=== PATIENT | female | born 1970 | race Hispanic/Latino ===

== ENCOUNTER 2021-08-04 11:16 | Emergency (ER) | payer BC ==
[~2021-08-04] VITALS: Ht 157.5 cm; Wt 70.3 kg
[2021-08-04] MEDS ORDERED: ACETAMINOPHEN 325 MG TAB PO ONE (12:00)
[2021-08-04 12:18] LABS: CLARITY,URINE SL CLOUDY (CLEAR); COLOR,URINE YELLOW (YELLOW); KETONES,URINE NEGATIVE (NEGATIVE); LEUKOCYTE ESTERASE ,URINE NEGATIVE (NEGATIVE); NITRITE,URINE NEGATIVE (NEGATIVE); PROTEIN,URINE DIPSTICK TRACE (NEGATIVE); URINE UROBILINOGEN 0.2 mg/dL (0.2 - 1)
[2021-08-04 12:46] LABS: BACTERIA,URINE RARE /HPF; CALCIUM OXALATE CRYSTALS,UR FEW (FEW); EPITHELIAL CELLS,URINE RARE /LPF; WBC,URINE (MAN) 0-5 /HPF (0-5)
[2021-08-04 12:52] VITALS: BP 132/78
== END 2021-08-04 13:01 | disposition home or self-care (01) ==
LOC: ER 11:35
DX: U07.1 COVID-19 (principal); R05.9 Cough, unspecified; F41.9 Anxiety disorder, unspecified; M06.9 Rheumatoid arthritis, unspecified; E06.3 Autoimmune thyroiditis
CPT/HCPCS: 81001; 83518; 87070; 99283; U0002

== ENCOUNTER 2022-05-04 11:33 | Emergency (ER) | payer BC ==
[~2022-05-04] VITALS: Ht 157.5 cm; Wt 70.3 kg
[2022-05-04] MEDS ORDERED: KETOROLAC TROMETHAMINE 30 MG/ML VIAL IV STA (12:00)
[2022-05-04] MEDS ORDERED: TRAMADOL HCL 50 MG TAB PO ONE (12:00)
[2022-05-04] MEDS ORDERED: ULTRAM 50MG50 MG PO ×2 (12:23→12:26)
== END 2022-05-04 12:31 | disposition home or self-care (01) ==
LOC: ER 11:36
DX: M06.9 Rheumatoid arthritis, unspecified (principal); G89.29 Other chronic pain; F41.9 Anxiety disorder, unspecified; F32.A Depression, unspecified
CPT/HCPCS: 99283; J1885